=== PATIENT | male | born 1970 | race African-American/Black ===

== ENCOUNTER 2016-07-31 06:49 | Inpatient (IN) | payer MEDICAID ==
[~2016-07-31] VITALS: Ht 188 cm; Wt 115.3 kg
[2016-07-31] MEDS ORDERED: SODIUM CHLORIDE 0.9% 1,000 ML IV ONE ×3 (07:15→09:15)
[2016-07-31 07:24] LABS: BASOPHILS # (AUTO) 0.01 K/uL (0.00-0.20); BASOPHILS % (AUTO) 0.1 % (0.0-2.0); EOSINOPHILS % (AUTO) 0.03 % (1.0-6.0); HEMOGLOBIN 17.4 g/dL (13.5-17.5); LYMPHOCYTES # (AUTO) 0.7 K/uL (1.0-4.8); LYMPHOCYTES % (AUTO) 4.6 % (22.0-44.0); MEAN CORPUSCULAR HGB CONC 30.1 G/dL (31.0-37.0); MEAN CORPUSCULAR VOLUME 100 fL (80-100); MONOCYTES # (AUTO) 0.7 K/uL (0.1-1.0); MONOCYTES % (AUTO) 4.5 % (2.0-9.0); NEUTROPHILS # (AUTO) 13.7 K/uL (1.8-7.7); RED CELL DISTRIBUTION WIDTH 15.1 % (11.5-14.5); WHITE BLOOD COUNT (AUTO) 15.1 K/uL (4.5-11.0)
[2016-07-31 07:31] LABS: HEMATOCRIT 57.9 % (41-53); NEUTROPHILS % (AUTO) 90.7 % (40.0-70.0)
[2016-07-31 07:32] LABS: PLATELET COUNT (AUTO) 99 K/uL (150-450)
[2016-07-31 07:52] LABS: POTASSIUM 4.7 mmol/L (3.5-5.1)
[2016-07-31 07:53] LABS: CALCIUM, TOTAL 9.4 mg/dL (8.8-10.5); CREATININE 3.1 mg/dL (0.60-1.30)
[2016-07-31 08:07] LABS: GLUCOSE,POINT OF CARE > 600 MG/DL (70-110)
[2016-07-31] MEDS ORDERED: INSULIN REGULAR, HUMAN 100 UNITS/ML IVP ONE ×2 (08:15→10:30)
[2016-07-31 08:19] LABS: ALBUMIN 3.1 g/dL (3.4-5.0); TOTAL PROTEIN, SERUM 7.1 g/dL (6.4-8.2)
[2016-07-31 08:20] LABS: BILIRUBIN,TOTAL 0.5 mg/dL (0.1-1.0)
[2016-07-31] MEDS ORDERED: INSULIN REGULAR, HUMAN 100 UNITS in SODIUM CHLORIDE 0.9% 99 ML IV PRN ×2 (08:30)
[2016-07-31 08:42] LABS: APPEARANCE,URINE CLEAR (CLEAR); GLUCOSE, URINE (UA) >=1000 mg/dL (NEGATIVE); KETONES,URINE 40 mg/dL (NEGATIVE); LEUKOCYTE ESTERASE ,URINE NEGATIVE (NEGATIVE); OCCULT BLOOD,URINE LARGE (NEGATIVE); PROTEIN,URINE POS 1+ (NEGATIVE)
[2016-07-31 08:47] LABS: SQUAMOUS EPITHELIAL CELL,UR Few /LPF (None Seen)
[2016-07-31 09:07] LABS: GLUCOSE,POINT OF CARE > 600 MG/DL (70-110)
[2016-07-31 09:38] LABS: ALBUMIN 3.1 g/dL (3.4-5.0); BILIRUBIN,TOTAL 0.5 mg/dL (0.1-1.0); CALCIUM, TOTAL 9.2 mg/dL (8.8-10.5); CREATININE 2.9 mg/dL (0.60-1.30); POTASSIUM 3.8 mmol/L (3.5-5.1); TOTAL PROTEIN, SERUM 7.1 g/dL (6.4-8.2)
[2016-07-31 09:51] LABS: ABG A-A DIFF O2 62.3 mmHg (10-20.0); ABG BASE EXCESS -28.5 mmol/L (-2.0-3.0); ABG OXYHEMOGLOBIN 97.1 % (94.0-100.0); ABG PH 6.994 (7.35-7.450); TEMPERATURE, FAHRENHEIT, BG 95.7 FAHREN (96.0-98.6)
[2016-07-31 09:52] LABS: ABG HCO3 7.7 mmol/L (22.0-26.0); ABG PCO2 13 mmHg (35-45); ALLEN TEST, BLOOD GAS Positive
[2016-07-31] MEDS ORDERED: POTASSIUM CHL 20 MEQ/0.9% NS 1,000 ML IV ONE (10:00)
[2016-07-31] MEDS ORDERED: ONDANSETRON HCL 4 MG/2 ML VIAL IVP PRN ×2 (10:15→10:30)
[2016-07-31 10:16] LABS: GLUCOSE,POINT OF CARE > 600 MG/DL (70-110)
[2016-07-31 10:20] VITALS: BP 140/78
[2016-07-31] MEDS ORDERED: DEXTROSE 5%-0.45% SODIUM CHL 1,000 ML IV PRN (10:30)
[2016-07-31] MEDS ORDERED: POTASSIUM CHL 20 MEQ/0.45% NS 1,000 ML IV PRN (10:30)
[2016-07-31] MEDS ORDERED: BISACODYL 10 MG RECTAL RECTAL SUPPOSITORY PR PRN (10:30)
[2016-07-31] MEDS ORDERED: POTASSIUM CHLORIDE 40 MEQ in SODIUM CHLORIDE 0.45% 1,000 ML IV PRN (10:30)
[2016-07-31] MEDS ORDERED: POTASSIUM PHOS,M-BASIC-D-BASIC 20 MMOL in SODIUM CHLORIDE 0.45% 500 ML IV PRN (10:30)
[2016-07-31] MEDS ORDERED: 0.9% SODIUM CHLORIDE 10 ML SYRINGE IVP PRN (10:30)
[2016-07-31] MEDS ORDERED: SODIUM CHLORIDE 0.9% 1,000 ML IV SCH (10:30)
[2016-07-31] MEDS ORDERED: DEXTROSE 50%-WATER 25 GM/50 ML SYRINGE IVP PRN (10:30)
[2016-07-31] MEDS ORDERED: SODIUM CHLORIDE 0.45% 1,000 ML IV PRN (10:30)
[2016-07-31] MEDS ORDERED: DOCUSATE SODIUM 100 MG CAPSULE PO PRN (10:30)
[2016-07-31] MEDS ORDERED: ALBUTEROL SULFATE 2.5 MG/0.5 ML NEB SOLUTION NEB PRN (10:30)
[2016-07-31] MEDS ORDERED: ACETAMINOPHEN 325 MG TABLET PO PRN ×2 (10:30)
[2016-07-31] MEDS ORDERED: IPRATROPIUM BROMIDE 0.5 MG/2.5 ML NEB SOLUTION NEB PRN (10:30)
[2016-07-31] MEDS ORDERED: BARIUM SULFATE 0.1% SUSPENSION 450 ML BOTTLE ONE (11:05)
[2016-07-31] MEDS ORDERED: POTASSIUM CHLORIDE 40 MEQ in SODIUM CHLORIDE 0.9% 1,000 ML IV SCH (11:15)
[2016-07-31] MEDS: PANTOPRAZOLE SODIUM 40 MG/VIAL IVP SCH (11:23)
[2016-07-31 11:38] LABS: CALCIUM, TOTAL 9.3 mg/dL (8.8-10.5); CREATININE 2.65 mg/dL (0.60-1.30); POTASSIUM 3.8 mmol/L (3.5-5.1)
[2016-07-31 11:41] LABS: INR 0.9 (0.9-1.1)
[2016-07-31 12:00] VITALS: BP 130/81
[2016-07-31] MEDS ORDERED: PNEUMOCOCCAL VACCINE POLYVALENT 0.5 ML VIAL [PPSV23] IM ONE (12:00)
[2016-07-31] MEDS: INSULIN REGULAR, HUMAN 100 UNITS/ML IVP PRN ×4 (13:07→17:30)
[2016-07-31 14:31] LABS: ABG A-A DIFF O2 65.1 mmHg (10-20.0); ABG BASE EXCESS -22.8 mmol/L (-2.0-3.0); ABG HCO3 10.6 mmol/L (22.0-26.0); ABG OXYHEMOGLOBIN 96.6 % (94.0-100.0); ABG PCO2 23 mmHg (35-45); TEMPERATURE, FAHRENHEIT, BG 100.9 FAHREN (96.0-98.6)
[2016-07-31 14:32] LABS: ABG PH 7.088 (7.35-7.450)
[2016-07-31 14:33] LABS: ALLEN TEST, BLOOD GAS Positive
[2016-07-31] MEDS ORDERED: SODIUM CHLORIDE 0.45% IV PRN (15:00)
[2016-07-31] MEDS ORDERED: SODIUM BICARBONATE IV PRN (15:00)
[2016-07-31] MEDS ORDERED: POTASSIUM CHLORIDE IV PRN (15:00)
[2016-07-31] MEDS ORDERED: POTASSIUM CHLORIDE IV SCH ×2 (15:15→19:00)
[2016-07-31] MEDS ORDERED: SODIUM BICARBONATE IV SCH ×2 (15:15→19:00)
[2016-07-31] MEDS ORDERED: SODIUM CHLORIDE 0.45% IV SCH (15:15)
[2016-07-31 15:28] LABS: ANION GAP 29 mmol/L (8-16); CALCIUM, TOTAL 9.6 mg/dL (8.8-10.5); CHLORIDE 125 mmol/L (98-107); CREATINE KINASE MB 4.8 ng/mL (0-5); CREATINE KINASE, TOTAL 198 U/L (39-308); CREATININE 2.49 mg/dL (0.60-1.30); GLOMERULAR FILTR. RATE CALC 34 mL/min (>60); POTASSIUM 3.8 mmol/L (3.5-5.1); UREA NITROGEN, BLOOD 61 mg/dL (7-18)
[2016-07-31] MEDS: INSULIN REGULAR, HUMAN 100 UNITS in SODIUM CHLORIDE 0.9% 99 ML IV PRN ×4 (15:31→19:59)
[2016-07-31 15:35] LABS: LACTIC ACID 1.6 mmol/L (0.4-2.0)
[2016-07-31 15:36] LABS: CARBON DIOXIDE 9 mmol/L (22-29); SODIUM SERUM 163 mmol/L (136-145)
[2016-07-31 15:48] LABS: OSMOLALITY 413 mOS/kg (270-310)
[2016-07-31 15:53] LABS: SALICYLATE 7.6 mg/dL (2.8-20.0)
[2016-07-31 16:00] VITALS: BP 118/69
[2016-07-31] MEDS ORDERED: POTASSIUM CHL 10 MEQ/WATER 50 ML IV ONE (17:45)
[2016-07-31 18:07] LABS: GLUCOSE COMMENT 1 Received Meds; GLUCOSE,POINT OF CARE > 600 MG/DL (70-110)
[2016-07-31 18:07] LABS: GLUCOSE COMMENT 1 Received Meds; GLUCOSE,POINT OF CARE 426 MG/DL (70-110)
[2016-07-31 18:07] LABS: GLUCOSE COMMENT 1 Received Meds; GLUCOSE,POINT OF CARE > 600 MG/DL (70-110)
[2016-07-31 18:11] LABS: GLUCOSE COMMENT 1 Received Meds; GLUCOSE,POINT OF CARE 289 MG/DL (70-110)
[2016-07-31 18:57] LABS: GLUCOSE COMMENT 1 Received Meds; GLUCOSE,POINT OF CARE 360 MG/DL (70-110)
[2016-07-31] MEDS ORDERED: WATER IV SCH (19:00)
[2016-07-31] MEDS ORDERED: DEXTROSE 5% IV SCH (19:00)
[2016-07-31 19:42] LABS: CALCIUM, TOTAL 9.9 mg/dL (8.8-10.5); CREATININE 2.58 mg/dL (0.60-1.30); MAGNESIUM 3.6 mg/dL (1.80-2.40); POTASSIUM 3.6 mmol/L (3.5-5.1)
[2016-07-31 19:49] LABS: PHOSPHORUS 0.9 mg/dL (2.5-4.9)
[2016-07-31 20:00] VITALS: BP 99/54
[2016-07-31] MEDS ORDERED: SODIUM PHOS,M-BASIC-D-BASIC 30 MEQ in DEXTROSE 5%-WATER 150 ML IV ONE (20:45)
[2016-07-31 20:54] LABS: ABG A-A DIFF O2 36.7 mmHg (10-20.0); ABG BASE EXCESS -9.8 mmol/L (-2.0-3.0); ABG HCO3 17.9 mmol/L (22.0-26.0); ABG OXYHEMOGLOBIN 95.6 % (94.0-100.0); ABG PCO2 34 mmHg (35-45); ABG PH 7.305 (7.35-7.450); TEMPERATURE, FAHRENHEIT, BG 98.6 FAHREN (96.0-98.6)
[2016-07-31 20:55] LABS: ALLEN TEST, BLOOD GAS POSITIVE
[2016-07-31] MEDS: DEXTROSE 5%-0.45% SODIUM CHL 1,000 ML IV SCH (20:55)
[2016-07-31 22:07] LABS: GLUCOSE COMMENT 1 Received Meds; GLUCOSE,POINT OF CARE 223 MG/DL (70-110)
[2016-08-01] VITALS: BP 124/75
[2016-08-01 02:23] LABS: CALCIUM, TOTAL 9.4 mg/dL (8.8-10.5); CREATININE 3.05 mg/dL (0.60-1.30); POTASSIUM 3.9 mmol/L (3.5-5.1)
[2016-08-01 04:00] VITALS: BP 151/91
[2016-08-01] MEDS: INSULIN REGULAR, HUMAN 100 UNITS/ML IVP PRN ×9 (04:00→20:17)
[2016-08-01] MEDS: DEXTROSE 5%-0.45% SODIUM CHL 1,000 ML IV SCH ×2 (04:44→21:30)
[2016-08-01 05:34] LABS: BASOPHILS % (AUTO) 0.2 % (0.0-2.0); EOSINOPHILS % (AUTO) 0.3 % (1.0-6.0); HEMATOCRIT 53.6 % (41-53); HEMOGLOBIN 17.4 g/dL (13.5-17.5); LYMPHOCYTES # (AUTO) 0.4 K/uL (1.0-4.8); LYMPHOCYTES % (AUTO) 3.4 % (22.0-44.0); MEAN CORPUSCULAR HEMOGLOBIN 29.2 pg (26.0-34.0); MEAN CORPUSCULAR HGB CONC 32.4 G/dL (31.0-37.0); MEAN CORPUSCULAR VOLUME 90 fL (80-100); MONOCYTES # (AUTO) 0.3 K/uL (0.1-1.0); MONOCYTES % (AUTO) 2.4 % (2.0-9.0); NEUTROPHILS # (AUTO) 11.1 K/uL (1.8-7.7); PLATELET COUNT (AUTO) 90 K/uL (150-450); RED BLOOD CELL COUNT(AUTO) 5.94 MIL/uL (4.50-5.90); WHITE BLOOD COUNT (AUTO) 11.8 K/uL (4.5-11.0)
[2016-08-01 05:45] LABS: HEMOGLOBIN A1C 10.7 % (4.5-6.2)
[2016-08-01 05:46] LABS: NEUTROPHILS % (AUTO) 93.7 % (40.0-70.0)
[2016-08-01 06:08] LABS: INR 0.9 (0.9-1.1); PROTHROMBIN TIME 9.8 SEC (9.4-11.6)
[2016-08-01 06:09] LABS: BILIRUBIN,TOTAL 0.4 mg/dL (0.1-1.0); CALCIUM, TOTAL 9.3 mg/dL (8.8-10.5); CHOL/HDL RATIO 5.6 (4.2-7.3); CREATININE 2.87 mg/dL (0.60-1.30); MAGNESIUM 3.2 mg/dL (1.80-2.40); POTASSIUM 3.9 mmol/L (3.5-5.1); THYROID STIMULATING HORMONE 0.48 uIU/mL (0.36-3.74); TOTAL PROTEIN, SERUM 6.7 g/dL (6.4-8.2)
[2016-08-01 06:57] LABS: GLUCOSE COMMENT 1 Received Meds; GLUCOSE,POINT OF CARE 236 MG/DL (70-110)
[2016-08-01 06:57] LABS: GLUCOSE COMMENT 1 Received Meds; GLUCOSE,POINT OF CARE 187 MG/DL (70-110)
[2016-08-01 06:57] LABS: GLUCOSE COMMENT 1 Received Meds; GLUCOSE,POINT OF CARE 117 MG/DL (70-110)
[2016-08-01 06:57] LABS: GLUCOSE COMMENT 1 Received Meds; GLUCOSE,POINT OF CARE 265 MG/DL (70-110)
[2016-08-01 06:57] LABS: GLUCOSE COMMENT 1 Received Meds; GLUCOSE,POINT OF CARE 109 MG/DL (70-110)
[2016-08-01 06:57] LABS: GLUCOSE COMMENT 1 Received Meds; GLUCOSE,POINT OF CARE 143 MG/DL (70-110)
[2016-08-01 06:57] LABS: GLUCOSE COMMENT 1 Received Meds; GLUCOSE,POINT OF CARE 110 MG/DL (70-110)
[2016-08-01 06:57] LABS: GLUCOSE,POINT OF CARE 153 MG/DL (70-110)
[2016-08-01 06:57] LABS: GLUCOSE COMMENT 1 Received Meds; GLUCOSE,POINT OF CARE 275 MG/DL (70-110)
[2016-08-01 06:57] LABS: GLUCOSE COMMENT 1 Received Meds; GLUCOSE,POINT OF CARE 290 MG/DL (70-110)
[2016-08-01 06:57] LABS: GLUCOSE COMMENT 1 Received Meds; GLUCOSE,POINT OF CARE 105 MG/DL (70-110)
[2016-08-01 06:57] LABS: GLUCOSE COMMENT 1 Received Meds; GLUCOSE,POINT OF CARE 229 MG/DL (70-110)
[2016-08-01 07:09] LABS: PHOSPHORUS 0.9 mg/dL (2.5-4.9)
[2016-08-01 07:52] LABS: GLUCOSE COMMENT 1 Received Meds; GLUCOSE,POINT OF CARE 304 MG/DL (70-110)
[2016-08-01 08:00] VITALS: BP 145/87
[2016-08-01] MEDS ORDERED: SODIUM PHOS,M-BASIC-D-BASIC 30 MEQ in DEXTROSE 5%-WATER 150 ML IV ONE (08:30)
[2016-08-01] MEDS ORDERED: DEXTROSE 5%-WATER 1,000 ML IV SCH ×2 (08:30→10:39)
[2016-08-01] MEDS ORDERED: DEXTROSE 5%-WATER 1,000 ML IV ONE (08:37)
[2016-08-01] MEDS: PANTOPRAZOLE SODIUM 40 MG/VIAL IVP SCH (09:00)
[2016-08-01 09:10] LABS: ABG BASE EXCESS -8.4 mmol/L (-2.0-3.0); ABG HCO3 18.8 mmol/L (22.0-26.0); ABG OXYHEMOGLOBIN 96.1 % (94.0-100.0); ABG PCO2 33 mmHg (35-45); ABG PH 7.343 (7.35-7.450); TEMPERATURE, FAHRENHEIT, BG 98.1 FAHREN (96.0-98.6)
[2016-08-01 09:11] LABS: ALLEN TEST, BLOOD GAS Positive
[2016-08-01] MEDS: INSULIN REGULAR, HUMAN 100 UNITS in SODIUM CHLORIDE 0.9% 99 ML IV PRN ×4 (10:05→23:10)
[2016-08-01] MEDS ORDERED: 0.9% SODIUM CHLORIDE 10 ML SYRINGE IVP PRN (10:30)
[2016-08-01 10:42] LABS: GLUCOSE COMMENT 1 Received Meds; GLUCOSE,POINT OF CARE 322 MG/DL (70-110)
[2016-08-01 10:42] LABS: GLUCOSE,POINT OF CARE 291 MG/DL (70-110)
[2016-08-01 10:42] LABS: GLUCOSE COMMENT 1 Received Meds; GLUCOSE,POINT OF CARE 291 MG/DL (70-110)
[2016-08-01] MEDS ORDERED: DEXTROSE 50%-WATER 25 GM/50 ML SYRINGE IVP PRN ×2 (10:45→11:00)
[2016-08-01] MEDS ORDERED: DEXTROSE 5%-0.45% SODIUM CHL 1,000 ML IV PRN ×2 (10:47→12:49)
[2016-08-01] MEDS ORDERED: INSULIN REGULAR, HUMAN 100 UNITS/ML IVP ONE (11:00)
[2016-08-01 11:40] LABS: BASOPHILS % (AUTO) 0.3 % (0.0-2.0); EOSINOPHILS % (AUTO) 0.4 % (1.0-6.0); HEMATOCRIT 50.2 % (41-53); HEMOGLOBIN 16.4 g/dL (13.5-17.5); LYMPHOCYTES # (AUTO) 0.5 K/uL (1.0-4.8); LYMPHOCYTES % (AUTO) 3.4 % (22.0-44.0); MEAN CORPUSCULAR HEMOGLOBIN 29.2 pg (26.0-34.0); MEAN CORPUSCULAR HGB CONC 32.7 G/dL (31.0-37.0); MEAN CORPUSCULAR VOLUME 89 fL (80-100); MONOCYTES # (AUTO) 0.6 K/uL (0.1-1.0); MONOCYTES % (AUTO) 3.8 % (2.0-9.0); NEUTROPHILS # (AUTO) 13.3 K/uL (1.8-7.7); PLATELET COUNT (AUTO) 87 K/uL (150-450); RED BLOOD CELL COUNT(AUTO) 5.62 MIL/uL (4.50-5.90); RED CELL DISTRIBUTION WIDTH 14.2 % (11.5-14.5); WHITE BLOOD COUNT (AUTO) 14.5 K/uL (4.5-11.0)
[2016-08-01 11:41] LABS: NEUTROPHILS % (AUTO) 92.1 % (40.0-70.0)
[2016-08-01 12:00] VITALS: BP 131/91
[2016-08-01 12:04] LABS: CALCIUM, TOTAL 9.2 mg/dL (8.8-10.5); CREATININE 2.64 mg/dL (0.60-1.30); MAGNESIUM 3.1 mg/dL (1.80-2.40); PHOSPHORUS 1.8 mg/dL (2.5-4.9); POTASSIUM 3.4 mmol/L (3.5-5.1)
[2016-08-01] MEDS ORDERED: POTASSIUM PHOS,M-BASIC-D-BASIC 20 MEQ in DEXTROSE 5%-WATER 100 ML IV ONE ×3 (12:45→21:30)
[2016-08-01 14:12] LABS: GLUCOSE COMMENT 1 Received Meds; GLUCOSE,POINT OF CARE 303 MG/DL (70-110)
[2016-08-01 14:12] LABS: GLUCOSE,POINT OF CARE 225 MG/DL (70-110)
[2016-08-01 14:12] LABS: GLUCOSE COMMENT 1 Received Meds; GLUCOSE,POINT OF CARE 255 MG/DL (70-110)
[2016-08-01 15:57] LABS: CALCIUM, TOTAL 9.2 mg/dL (8.8-10.5); CREATININE 2.24 mg/dL (0.60-1.30); MAGNESIUM 2.9 mg/dL (1.80-2.40); PHOSPHORUS 1.7 mg/dL (2.5-4.9); POTASSIUM 3.5 mmol/L (3.5-5.1)
[2016-08-01 16:00] VITALS: BP 144/94
[2016-08-01 16:17] LABS: GLUCOSE COMMENT 1 Received Meds; GLUCOSE,POINT OF CARE 241 MG/DL (70-110)
[2016-08-01 16:17] LABS: GLUCOSE,POINT OF CARE 226 MG/DL (70-110)
[2016-08-01] MEDS ORDERED: SODIUM CHLORIDE 0.9% 0 ML IV ONE (16:33)
[2016-08-01] MEDS ORDERED: DEXTROSE 5%-0.45% SODIUM CHL 1,000 ML IV ONE (16:36)
[2016-08-01 18:06] LABS: GLUCOSE COMMENT 1 Received Meds; GLUCOSE,POINT OF CARE 248 MG/DL (70-110)
[2016-08-01 18:06] LABS: GLUCOSE COMMENT 1 Received Meds; GLUCOSE,POINT OF CARE 228 MG/DL (70-110)
[2016-08-01 19:12] LABS: GLUCOSE COMMENT 1 Received Meds; GLUCOSE,POINT OF CARE 261 MG/DL (70-110)
[2016-08-01 20:00] VITALS: BP 140/92
[2016-08-01 20:38] LABS: CALCIUM, TOTAL 9.4 mg/dL (8.8-10.5); CREATININE 2.01 mg/dL (0.60-1.30); MAGNESIUM 2.9 mg/dL (1.80-2.40); PHOSPHORUS 1.7 mg/dL (2.5-4.9); POTASSIUM 3.1 mmol/L (3.5-5.1)
[2016-08-01] MEDS: ATORVASTATIN CALCIUM 20 MG TABLET PO SCH (21:00)
[2016-08-01] MEDS ORDERED: CefTRIAXone 1 GM/DEXTROSE 50 ML IV SCH (21:30)
[2016-08-01] MEDS: DEXTROSE 5%-WATER 1,000 ML IV SCH (21:49)
[2016-08-01] MEDS: POTASSIUM CHL 10 MEQ/WATER 50 ML IV SCH ×2 (21:58→23:09)
[2016-08-02] VITALS: BP 154/100
[2016-08-02 02:20] LABS: CALCIUM, TOTAL 9.3 mg/dL (8.8-10.5); CREATININE 1.67 mg/dL (0.60-1.30)
[2016-08-02 03:02] LABS: GLUCOSE,POINT OF CARE 153 MG/DL (70-110)
[2016-08-02 03:02] LABS: GLUCOSE,POINT OF CARE 193 MG/DL (70-110)
[2016-08-02 03:02] LABS: GLUCOSE,POINT OF CARE 182 MG/DL (70-110)
[2016-08-02 03:02] LABS: GLUCOSE,POINT OF CARE 292 MG/DL (70-110)
[2016-08-02 03:02] LABS: GLUCOSE,POINT OF CARE 203 MG/DL (70-110)
[2016-08-02 03:02] LABS: GLUCOSE,POINT OF CARE 171 MG/DL (70-110)
[2016-08-02 04:00] VITALS: BP 136/97
[2016-08-02 04:02] LABS: GLUCOSE,POINT OF CARE 218 MG/DL (70-110)
[2016-08-02 06:47] LABS: GLUCOSE,POINT OF CARE 98 MG/DL (70-110)
[2016-08-02 06:47] LABS: GLUCOSE,POINT OF CARE 183 MG/DL (70-110)
[2016-08-02 06:47] LABS: GLUCOSE COMMENT 1 Received Meds; GLUCOSE,POINT OF CARE 116 MG/DL (70-110)
[2016-08-02 06:47] LABS: GLUCOSE,POINT OF CARE 135 MG/DL (70-110)
[2016-08-02 06:55] LABS: BASOPHILS % (AUTO) 0.3 % (0.0-2.0); EOSINOPHILS % (AUTO) 1.7 % (1.0-6.0); HEMATOCRIT 50.1 % (41-53); HEMOGLOBIN 16.7 g/dL (13.5-17.5); LYMPHOCYTES % (AUTO) 8.3 % (22.0-44.0); MEAN CORPUSCULAR HEMOGLOBIN 29.8 pg (26.0-34.0); MEAN CORPUSCULAR HGB CONC 33.4 G/dL (31.0-37.0); MEAN CORPUSCULAR VOLUME 89 fL (80-100); MONOCYTES # (AUTO) 1.1 K/uL (0.1-1.0); NEUTROPHILS # (AUTO) 9.4 K/uL (1.8-7.7); NEUTROPHILS % (AUTO) 80.7 % (40.0-70.0); PLATELET COUNT (AUTO) 86 K/uL (150-450); RED BLOOD CELL COUNT(AUTO) 5.61 MIL/uL (4.50-5.90); RED CELL DISTRIBUTION WIDTH 14.3 % (11.5-14.5); WHITE BLOOD COUNT (AUTO) 11.7 K/uL (4.5-11.0)
[2016-08-02 07:47] LABS: ALANINE AMINOTRANSFERASE 38 U/L (12-78); ALBUMIN 2.7 g/dL (3.4-5.0); AMYLASE 374 U/L (25-115); ANION GAP 16 mmol/L (8-16); ASPARTATE AMINOTRANSFERASE 34 U/L (15-37); BILIRUBIN,TOTAL 0.3 mg/dL (0.1-1.0); CALCIUM, TOTAL 9.3 mg/dL (8.8-10.5); CARBON DIOXIDE 20 mmol/L (22-29); CHLORIDE 127 mmol/L (98-107); CREATININE 1.46 mg/dL (0.60-1.30); GLOMERULAR FILTR. RATE CALC > 60 mL/min (>60); PHOSPHORUS 1.7 mg/dL (2.5-4.9); POTASSIUM 3.1 mmol/L (3.5-5.1); TOTAL PROTEIN, SERUM 6.4 g/dL (6.4-8.2); UREA NITROGEN, BLOOD 45 mg/dL (7-18)
[2016-08-02 07:52] LABS: SODIUM SERUM 163 mmol/L (136-145)
[2016-08-02 08:00] VITALS: BP 143/85
[2016-08-02 08:12] LABS: GLUCOSE,POINT OF CARE 127 MG/DL (70-110)
[2016-08-02 08:12] LABS: GLUCOSE,POINT OF CARE 141 MG/DL (70-110)
[2016-08-02] MEDS: PANTOPRAZOLE SODIUM 40 MG/VIAL IVP SCH (08:22)
[2016-08-02] MEDS: INSULIN REGULAR, HUMAN 100 UNITS in SODIUM CHLORIDE 0.9% 99 ML IV PRN ×2 (08:22)
[2016-08-02] MEDS: DEXTROSE 5%-WATER 1,000 ML IV SCH ×2 (08:23→17:21)
[2016-08-02] MEDS ORDERED: POTASSIUM CHLORIDE 10% 40 MEQ/30 ML LIQUID UDCUP PO ONE ×2 (08:45→14:15)
[2016-08-02] MEDS ORDERED: POTASSIUM PHOS,M-BASIC-D-BASIC 20 MMOL in DEXTROSE 5%-WATER 150 ML IV ONE (08:45)
[2016-08-02 11:42] LABS: GLUCOSE,POINT OF CARE 140 MG/DL (70-110)
[2016-08-02 11:42] LABS: GLUCOSE,POINT OF CARE 125 MG/DL (70-110)
[2016-08-02 11:42] LABS: GLUCOSE COMMENT 1 Received Meds; GLUCOSE,POINT OF CARE 139 MG/DL (70-110)
[2016-08-02 12:00] VITALS: BP 136/84
[2016-08-02 12:46] LABS: GLUCOSE COMMENT 1 Received Meds; GLUCOSE,POINT OF CARE 139 MG/DL (70-110)
[2016-08-02 13:12] LABS: GLUCOSE,POINT OF CARE 130 MG/DL (70-110)
[2016-08-02 13:55] LABS: CALCIUM, TOTAL 8.8 mg/dL (8.8-10.5); CREATININE 1.58 mg/dL (0.60-1.30); MAGNESIUM 2.4 mg/dL (1.80-2.40); PHOSPHORUS 2.3 mg/dL (2.5-4.9); POTASSIUM 3.3 mmol/L (3.5-5.1)
[2016-08-02] MEDS ORDERED: DEXTROSE 50%-WATER 25 GM/50 ML SYRINGE IVP PRN (14:15)
[2016-08-02] MEDS ORDERED: POTASSIUM PHOS,M-BASIC-D-BASIC 20 MEQ in DEXTROSE 5%-WATER 100 ML IV ONE (14:15)
[2016-08-02] MEDS ORDERED: INSULIN DETEMIR 100 UNITS/ML SQ SCH (14:15)
[2016-08-02] MEDS ORDERED: INSULIN GLARGINE,HUM.REC.ANLOG 100 UNITS/ML SQ SCH (14:30)
[2016-08-02] MEDS ORDERED: VANCOMYCIN HCL 1 GM/D5% WATER 200 ML IV ONE (15:15)
[2016-08-02] MEDS: INSULIN ASPART 100 UNITS/ML SQ PRN ×3 (15:17→20:29)
[2016-08-02 16:00] VITALS: BP 162/90
[2016-08-02] MEDS: DEXTROSE 5%-0.45% SODIUM CHL 1,000 ML IV SCH (17:21)
[2016-08-02 18:12] LABS: GLUCOSE COMMENT 1 Received Meds; GLUCOSE,POINT OF CARE 187 MG/DL (70-110)
[2016-08-02 18:12] LABS: GLUCOSE COMMENT 1 Received Meds; GLUCOSE,POINT OF CARE 214 MG/DL (70-110)
[2016-08-02 18:19] LABS: ANION GAP 0 mmol/L (8-16); CALCIUM, TOTAL 8.7 mg/dL (8.8-10.5); CARBON DIOXIDE 20 mmol/L (22-29); CHLORIDE 122 mmol/L (98-107); CREATININE 1.42 mg/dL (0.60-1.30); GLOMERULAR FILTR. RATE CALC > 60 mL/min (>60); PHOSPHORUS 3.6 mg/dL (2.5-4.9); POTASSIUM 3.6 mmol/L (3.5-5.1); SODIUM SERUM 142 mmol/L (136-145); UREA NITROGEN, BLOOD 41 mg/dL (7-18)
[2016-08-02 20:00] VITALS: BP 128/88
[2016-08-02] MEDS: ATORVASTATIN CALCIUM 20 MG TABLET PO SCH (20:16)
[2016-08-02] MEDS ORDERED: VANCOMYCIN HCL 500 MG in DEXTROSE 5%-WATER 100 ML IV ONE (23:00)
[2016-08-03] VITALS (7 sets, daily range): BP systolic 118–140; BP diastolic 83–96
[2016-08-03 03:07] LABS: GLUCOSE,POINT OF CARE 116 MG/DL (70-110)
[2016-08-03 03:07] LABS: GLUCOSE COMMENT 1 Received Meds; GLUCOSE,POINT OF CARE 205 MG/DL (70-110)
[2016-08-03 03:07] LABS: GLUCOSE COMMENT 1 Received Meds; GLUCOSE,POINT OF CARE 143 MG/DL (70-110)
[2016-08-03] MEDS: DEXTROSE 5%-WATER 1,000 ML IV SCH (03:10)
[2016-08-03] MEDS ORDERED: DEXTROSE 50%-WATER 25 GM/50 ML SYRINGE IVP PRN (05:15)
[2016-08-03] MEDS: INSULIN ASPART 100 UNITS/ML SQ PRN ×5 (05:15→22:07)
[2016-08-03 05:17] LABS: GLUCOSE COMMENT 1 Received Meds; GLUCOSE,POINT OF CARE 447 MG/DL (70-110)
[2016-08-03 05:17] LABS: GLUCOSE COMMENT 1 Received Meds; GLUCOSE,POINT OF CARE 227 MG/DL (70-110)
[2016-08-03 06:16] LABS: ANION GAP 16 mmol/L (8-16); CALCIUM, TOTAL 8.6 mg/dL (8.8-10.5); CARBON DIOXIDE 16 mmol/L (22-29); CHLORIDE 119 mmol/L (98-107); CREATININE 1.21 mg/dL (0.60-1.30); GLOMERULAR FILTR. RATE CALC > 60 mL/min (>60); POTASSIUM 5.1 mmol/L (3.5-5.1); SODIUM SERUM 151 mmol/L (136-145); UREA NITROGEN, BLOOD 32 mg/dL (7-18)
[2016-08-03 07:22] LABS: ORIG DRAW (USER) MSIMS
[2016-08-03] MEDS: PANTOPRAZOLE SODIUM 40 MG/VIAL IVP SCH (08:28)
[2016-08-03 08:29] LABS: BASOPHILS % (AUTO) 0.3 % (0.0-2.0); EOSINOPHILS % (AUTO) 1.1 % (1.0-6.0); HEMATOCRIT 46.3 % (41-53); HEMOGLOBIN 15.2 g/dL (13.5-17.5); LYMPHOCYTES # (AUTO) 0.8 K/uL (1.0-4.8); LYMPHOCYTES % (AUTO) 10.7 % (22.0-44.0); MEAN CORPUSCULAR HEMOGLOBIN 29.3 pg (26.0-34.0); MEAN CORPUSCULAR HGB CONC 32.8 G/dL (31.0-37.0); MEAN CORPUSCULAR VOLUME 89 fL (80-100); MONOCYTES # (AUTO) 0.5 K/uL (0.1-1.0); MONOCYTES % (AUTO) 7.7 % (2.0-9.0); NEUTROPHILS # (AUTO) 5.7 K/uL (1.8-7.7); NEUTROPHILS % (AUTO) 80.2 % (40.0-70.0); PLATELET COUNT (AUTO) 64 K/uL (150-450); RED BLOOD CELL COUNT(AUTO) 5.18 MIL/uL (4.50-5.90); RED CELL DISTRIBUTION WIDTH 14.2 % (11.5-14.5); WHITE BLOOD COUNT (AUTO) 7.1 K/uL (4.5-11.0)
[2016-08-03] MEDS: VANCOMYCIN HCL 1 GM/D5% WATER 200 ML IV SCH ×2 (08:31→20:40)
[2016-08-03] MEDS: INSULIN DETEMIR 100 UNITS/ML SQ SCH ×2 (08:37→22:06)
[2016-08-03] MEDS: DOCUSATE SODIUM 100 MG CAPSULE PO SCH ×2 (09:00→20:40)
[2016-08-03] MEDS ORDERED: INSULIN DETEMIR 100 UNITS/ML SQ SCH ×2 (09:00)
[2016-08-03 09:17] LABS: GLUCOSE COMMENT 1 Received Meds; GLUCOSE,POINT OF CARE 442 MG/DL (70-110)
[2016-08-03 16:00] LABS: ANION GAP 11 mmol/L (8-16); CALCIUM, TOTAL 8.7 mg/dL (8.8-10.5); CARBON DIOXIDE 23 mmol/L (22-29); CHLORIDE 117 mmol/L (98-107); CREATININE 1.07 mg/dL (0.60-1.30); GLOMERULAR FILTR. RATE CALC > 60 mL/min (>60); SODIUM SERUM 151 mmol/L (136-145); UREA NITROGEN, BLOOD 27 mg/dL (7-18)
[2016-08-03 16:03] LABS: PHOSPHORUS 3.5 mg/dL (2.5-4.9)
[2016-08-03] MEDS: MAGNESIUM HYDROXIDE SUSPENSION 30 ML UDCUP PO PRN (17:15)
[2016-08-03 17:27] LABS: GLUCOSE,POINT OF CARE 244 MG/DL (70-110)
[2016-08-03 18:07] LABS: GLUCOSE,POINT OF CARE 349 MG/DL (70-110)
[2016-08-03 18:07] LABS: GLUCOSE,POINT OF CARE 297 MG/DL (70-110)
[2016-08-03] MEDS ORDERED: SODIUM CHLORIDE 0.9% 500 ML IV ONE (20:07)
[2016-08-03] MEDS: ATORVASTATIN CALCIUM 20 MG TABLET PO SCH (20:40)
[2016-08-04 05:03] VITALS: BP 144/92
[2016-08-04] MEDS: MAGNESIUM HYDROXIDE SUSPENSION 30 ML UDCUP PO PRN (06:20)
[2016-08-04] MEDS: INSULIN ASPART 100 UNITS/ML SQ PRN ×4 (06:21→21:04)
[2016-08-04 07:30] LABS: AMYLASE 82 U/L (25-115); ANION GAP 10 mmol/L (8-16); CALCIUM, TOTAL 8.7 mg/dL (8.8-10.5); CARBON DIOXIDE 24 mmol/L (22-29); CHLORIDE 116 mmol/L (98-107); CREATININE 1.04 mg/dL (0.60-1.30); GLOMERULAR FILTR. RATE CALC > 60 mL/min (>60); PHOSPHORUS 3.1 mg/dL (2.5-4.9); POTASSIUM 3.6 mmol/L (3.5-5.1); SODIUM SERUM 150 mmol/L (136-145); UREA NITROGEN, BLOOD 23 mg/dL (7-18)
[2016-08-04 07:39] VITALS: BP 120/81
[2016-08-04] MEDS: PANTOPRAZOLE SODIUM 40 MG/VIAL IVP SCH (08:03)
[2016-08-04] MEDS: VANCOMYCIN HCL 1 GM/D5% WATER 200 ML IV SCH (08:03)
[2016-08-04 08:12] LABS: GLUCOSE COMMENT 1 Received Meds; GLUCOSE,POINT OF CARE 355 MG/DL (70-110)
[2016-08-04 08:12] LABS: GLUCOSE COMMENT 1 Received Meds; GLUCOSE,POINT OF CARE 385 MG/DL (70-110)
[2016-08-04] MEDS: DOCUSATE SODIUM 100 MG CAPSULE PO SCH ×2 (08:18→20:04)
[2016-08-04] MEDS: INSULIN DETEMIR 100 UNITS/ML SQ SCH ×2 (08:19→21:07)
[2016-08-04 11:29] VITALS: BP 126/77
[2016-08-04 11:52] LABS: GLUCOSE,POINT OF CARE 405 MG/DL (70-110)
[2016-08-04] MEDS ORDERED: SODIUM CHLORIDE 0.45% 1,000 ML IV SCH (12:41)
[2016-08-04 16:14] VITALS: BP 126/81
[2016-08-04 17:22] LABS: GLUCOSE,POINT OF CARE 349 MG/DL (70-110)
[2016-08-04 19:53] VITALS: BP 116/72
[2016-08-04] MEDS ORDERED: VANCOMYCIN HCL 1.5 GM in DEXTROSE 5%-WATER 250 ML IV SCH (20:00)
[2016-08-04] MEDS: ATORVASTATIN CALCIUM 20 MG TABLET PO SCH (20:04)
[2016-08-04 23:15] VITALS: BP 139/81
[2016-08-05 00:07] LABS: GLUCOSE,POINT OF CARE 363 MG/DL (70-110)
[2016-08-05 04:40] VITALS: BP 132/78
[2016-08-05] MEDS: INSULIN ASPART 100 UNITS/ML SQ PRN ×2 (06:01→12:28)
[2016-08-05 06:17] LABS: GLUCOSE COMMENT 1 Received Meds; GLUCOSE,POINT OF CARE 280 MG/DL (70-110)
[2016-08-05] MEDS: MAGNESIUM HYDROXIDE SUSPENSION 30 ML UDCUP PO PRN (06:21)
[2016-08-05 06:42] LABS: BASOPHILS # (AUTO) 0.02 K/uL (0.00-0.20); BASOPHILS % (AUTO) 0.2 % (0.0-2.0); EOSINOPHILS # (AUTO) 0.17 K/uL (0.00-0.70); EOSINOPHILS % (AUTO) 2.28 % (1.0-6.0); HEMATOCRIT 41.1 % (41-53); HEMOGLOBIN 13.6 g/dL (13.5-17.5); LYMPHOCYTES # (AUTO) 1.2 K/uL (1.0-4.8); LYMPHOCYTES % (AUTO) 16.6 % (22.0-44.0); MEAN CORPUSCULAR HEMOGLOBIN 30.3 pg (26.0-34.0); MEAN CORPUSCULAR VOLUME 92 fL (80-100); MONOCYTES % (AUTO) 14.1 % (2.0-9.0); NEUTROPHILS # (AUTO) 4.9 K/uL (1.8-7.7); NEUTROPHILS % (AUTO) 66.8 % (40.0-70.0); PLATELET COUNT (AUTO) 90 K/uL (150-450); RED BLOOD CELL COUNT(AUTO) 4.49 MIL/uL (4.50-5.90); RED CELL DISTRIBUTION WIDTH 13.7 % (11.5-14.5); WHITE BLOOD COUNT (AUTO) 7.3 K/uL (4.5-11.0)
[2016-08-05 07:55] LABS: ALANINE AMINOTRANSFERASE 30 U/L (12-78); ALBUMIN 2.4 g/dL (3.4-5.0); AMYLASE 75 U/L (25-115); ANION GAP 11 mmol/L (8-16); ASPARTATE AMINOTRANSFERASE 15 U/L (15-37); BILIRUBIN,TOTAL 0.6 mg/dL (0.1-1.0); CALCIUM, TOTAL 8.6 mg/dL (8.8-10.5); CARBON DIOXIDE 27 mmol/L (22-29); CHLORIDE 110 mmol/L (98-107); CREATININE 1.02 mg/dL (0.60-1.30); GLOMERULAR FILTR. RATE CALC > 60 mL/min (>60); POTASSIUM 3.7 mmol/L (3.5-5.1); SODIUM SERUM 148 mmol/L (136-145); TOTAL PROTEIN, SERUM 5.9 g/dL (6.4-8.2); UREA NITROGEN, BLOOD 16 mg/dL (7-18)
[2016-08-05] MEDS: DOCUSATE SODIUM 100 MG CAPSULE PO SCH (08:25)
[2016-08-05 08:29] VITALS: BP 122/75
[2016-08-05] MEDS: INSULIN DETEMIR 100 UNITS/ML SQ SCH (09:42)
[2016-08-05] MEDS ORDERED: LEVO500 PO (11:02)
[2016-08-05] MEDS ORDERED: INSLAN SQ (11:05)
[2016-08-05] MEDS ORDERED: ASPI81 PO (11:06)
[2016-08-05] MEDS ORDERED: ATOR20TA86 PO (11:06)
[2016-08-05 12:02] VITALS: BP 122/80
[2016-08-05 12:07] LABS: GLUCOSE COMMENT 1 Received Meds; GLUCOSE,POINT OF CARE 368 MG/DL (70-110)
== END 2016-08-05 14:35 | disposition home or self-care (01) | DRG 420 ==
LOC: EMS 06:51 → ICU 09:59 → 6N 08-03 13:00
PROVIDERS: ADMIT Internal Medicine; ATTEND Internal Medicine
DX: E13.10 Other specified diabetes mellitus with ketoacidosis without coma (principal); G92 Toxic encephalopathy; K85.90 Acute pancreatitis without necrosis or infection, unspecified; N17.9 Acute kidney failure, unspecified; E87.0 Hyperosmolality and hypernatremia; R65.10 Systemic inflammatory response syndrome (SIRS) of non-infectious origin without acute organ dysfunction; B95.8 Unspecified staphylococcus as the cause of diseases classified elsewhere; F17.210 Nicotine dependence, cigarettes, uncomplicated; E11.65 Type 2 diabetes mellitus with hyperglycemia; E87.4 Mixed disorder of acid-base balance; E87.2 Acidosis; E44.0 Moderate protein-calorie malnutrition; D69.6 Thrombocytopenia, unspecified; E86.0 Dehydration; E66.9 Obesity, unspecified; E78.5 Hyperlipidemia, unspecified; E87.6 Hypokalemia; R31.9 Hematuria, unspecified; E83.39 Other disorders of phosphorus metabolism; Z79.4 Long term (current) use of insulin; Z79.899 Other long term (current) drug therapy; Z68.32 Body mass index [BMI] 32.0-32.9, adult; R78.81 Bacteremia
CPT/HCPCS: 51702; 70450; 74176; 76700; 80307; 82570; 82805; 82948; 82962; 83036; 83605; 83735; 83930; 84100; 84300; 84439; 84443; 84540; 86001; 87040; 87081; 93005; 93306; 93970; 96360; 96361; 96365; 99291; C9113; G0480; J0696; J1815; J3370; J3480; J3490; J7030; J7040; J7050; J7060